=== PATIENT | female | born 1940 | race Caucasian/White ===

== ENCOUNTER → 2017-01-28 | Outpatient (CLI) | payer MEDICARE ==
[~2017-01-28] MED LIST: ASPIRIN CHEWABL81 MG PO; IMDUR ER TAB 3030 MG PO; LEVOTHYROXINE25 MCG PO; LIPITOR40 MG PO; PROTONIX 40 MG40 M1 PO; PROTONIX40 MG PO; SOTALOL80 MG PO; XARELTO15 MG PO; ZESTRIL10 MG PO; ZESTRIL20 MG PO; ZESTRIL40 MG PO
[2017-01-28 13:33] LABS: BUN/CREATININE RATIO 19 (0-10)
== END ==
LOC: LAB 12:44
PROVIDERS: Physician Assistant Surgical
DX: K52.9 Noninfective gastroenteritis and colitis, unspecified (principal); R11.10 Vomiting, unspecified
CPT/HCPCS: 36415; 80053